=== PATIENT | male | born 1975 | race Hispanic/Latino ===

== ENCOUNTER 2025-09-19 23:26 | Emergency (ER) | payer SELFPAY ==
[2025-09-20] MEDS ORDERED: predniSONE 20 MG TAB ONE (03:10)
[2025-09-20] MEDS ORDERED: Ketorolac Tromethamine 30 MG (1 mL) VIAL ONE (03:10)
[2025-09-20] MEDS ORDERED: Colchicine 0.6 MG TAB PO SCH ×2 (03:15→04:45)
== END 2025-09-20 04:55 | disposition home or self-care (01) ==
LOC: ERS 23:26
DX: M10.9 Gout, unspecified (principal); I10 Essential (primary) hypertension; F17.210 Nicotine dependence, cigarettes, uncomplicated
CPT/HCPCS: 96372; 99283; J1885; J7512